=== PATIENT | female | born 1985 | race African-American/Black ===

== ENCOUNTER 2023-01-25 00:42 | Emergency (ER) | payer SELFPAY ==
[2023-01-25 00:50] VITALS: BMI 21.9
[2023-01-25 01:10] VITALS: BP 118/82; PULSE 87
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
[2023-01-25 01:32] LABS: Ur Creatinine Normal (Normal); Ur Specific Gravity Normal (Normal); Urine pH Normal (Normal)
[2023-01-25 01:33] LABS: UR Morphine/Opiate cutoff 300 Negative (Negative); Urine Amphetamines Positive (Negative); Urine Barbiturates Positive (Negative); Urine Benzodiazepines Positive (Negative); Urine Cocaine Negative (Negative); Urine MDMA Positive (Negative); Urine Methadone Negative (Negative); Urine Methamphetamines Positive (Negative); Urine Oxycodone Negative (Negative); Urine Phencyclidine Negative (Negative); Urine Tetrahydrocannabinol Negative (Negative); Urine Tricyclic Antidepressant Negative (Negative)
[2023-01-25 02:55] LABS: Urine N gonorrhoeae NOT DETECTED
[2023-01-25 03:01] LABS: Urine Chlamydia NOT DETECTED
[2023-01-25 07:00] VITALS: RESP 18
[2023-01-25 10:47] VITALS: BP 121/74; PULSE 103; O2SAT 99
--- NOTE | 2023-01-25 10:49 | PC.NURSE ---
Patient appropriate and alert, ambulated to bathroom without difficulty. Speaking with STRUCTURES ENGINEER at bedside. Is courteous and polite. Given juice upon request.
[2023-01-25 11:00] VITALS: BP 108/71; PULSE 88; O2SAT 100
--- NOTE | 2023-01-25 12:49 | PC.NURSE ---
Patient asking if detox facilities have called back about potential admission. I spoke with Yolanda CAICEDO who states she will call back [facility].
--- NOTE | 2023-01-25 12:57 | PC.NURSE ---
Patient requesting imodium for diarrhea. I spoke with Dr. Galicia, verbal order given for 2mg imodium Po.
[2023-01-25] MEDS: LOPERAMIDE 2 MG CAPSULE PO (13:11)
--- NOTE | 2023-01-25 15:25 | PC.NURSE ---
Pt is alert and oriented and sitting up in bed. Pt is OK with lab draw and swab for testing.
[2023-01-25 16:00] VITALS: BP 111/78; PULSE 103; O2SAT 98
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
== END 2023-01-25 16:00 | disposition home or self-care (01) ==
PROVIDERS: Emergency Medicine; Emergency Provider Emergency Medicine
DX: R30.0 Dysuria (principal)
CPT/HCPCS: 80305; 81003; 81025; 87491; 87591; 99283; 99284